=== PATIENT | female | born 2000 ===

== ENCOUNTER 2022-05-28 04:10 | Inpatient (IN) ==
[2022-05-28] MEDS ORDERED: Naloxone 0.4 MG/ML INJ IVP PRN (04:31)
[2022-05-28] MEDS ORDERED: Lidocaine 1% 20 ML MDV INFILT PRN (04:31)
[2022-05-28] MEDS ORDERED: Metoclopramide 10 MG/2 ML VIAL IVP PRN (04:31)
[2022-05-28] MEDS ORDERED: *HR* Nalbuphine 10 MG/ML AMPUL IV PRN (04:31)
[2022-05-28] MEDS ORDERED: Azithromycin 500 MG in 0.9 % Sodium Chloride 250 ML IVPB PRN (04:31)
[2022-05-28] MEDS ORDERED: Famotidine 20 MG/2 ML VIAL IVP PRN (04:31)
[2022-05-28] MEDS ORDERED: Ondansetron 4 MG/2 ML VIAL IVP PRN (04:31)
[2022-05-28] MEDS ORDERED: EPHEDrine 50 MG/ML VIAL IVP PRN (05:04)
[2022-05-28] MEDS ORDERED: Bupivacaine-MPF 0.25% 10 ML VIAL EP ONE (05:04)
[2022-05-28] MEDS ORDERED: *HR* FentaNYL (PF) 100 MCG/2 ML VIAL EP ONE (05:04)
[2022-05-28 05:17] LABS: Basophils % 0.1 %; Eosinophils % 0.5 %; Hemoglobin 12.4 g/dL (11.5-15.4); Immature Granulocytes % 0.3 % (0-4); Lymphocytes # 1.8 K/mcL (0.6-4.6); Lymphocytes % 23.7 %; Mean Corpuscular HGB Conc 33.5 g/dL (31.6-35.5); Mean Corpuscular Hemoglobin 28.7 pg (28.0-33.3); Mean Corpuscular Volume 85.6 fL (83.0-100.0); Mean Platelet Volume 11.1 fL (9.4-12.4); Monocytes # 0.4 K/mcL (0.0-1.3); Monocytes % 5.8 %; Neutrophils # 5.1 K/mcL (1.6-8.9); Platelet Count 233 K/mcL (140-400); Red Blood Count 4.32 M/mcL (3.82-4.97); Red Cell Distribution Width 12.8 % (11.5-14.5); Segmented Neutrophils % 69.6 %; White Blood Count 7.4 K/mcL (4.3-11.1)
[2022-05-28] MEDS: miSOPROStoL 25 MCG TABLET PO PRN ×2 (05:22→10:08)
[2022-05-28 05:24] LABS: Amphetamine Screen,Urine Negative ng/mL (Cutoff=1000); Barbiturate Screen,Urine Negative ng/mL (Cutoff=200); Benzodiazepines Screen,Urine Negative ng/mL (Cutoff=200); Cannabinoid Screen,Urine Negative ng/mL (Cutoff = 50); Cocaine Screen,Urine Negative ng/mL (Cutoff= 300); Opiate Screen,Urine Negative ng/mL (Cutoff=300); Phencyclidine Screen,Urine Negative ng/mL (Cutoff=25)
[2022-05-28] MEDS ORDERED: Oxytocin 30 UNIT/503 ML BAG IVC SCH (14:30)
[2022-05-28] MEDS: Ringers Solution, Lactated 1,000 ML IVC SCH (14:33)
[2022-05-28] MEDS ORDERED: Ropivacaine/PF 0.2% 20 ML VIAL ONE (16:25)
[2022-05-28] MEDS ORDERED: *HR* FentaNYL (PF) 100 MCG/2 ML VIAL ONE (16:25)
[2022-05-28] MEDS: Epidural Premix (fent/bupiv) 110 ML EP SCH (19:18)
[2022-05-29] MEDS: Epidural Premix (fent/bupiv) 110 ML EP SCH ×2 (00:30→07:11)
[2022-05-29] MEDS: Ringers Solution, Lactated 1,000 ML IVC SCH (00:34)
[2022-05-29] MEDS ORDERED: D5% in Lactated Ringers 1,000 ML IVC SCH (08:15)
[2022-05-29] MEDS ORDERED: Measles/Mumps/Rubella Vacc 0.5 ML VIAL SQ PRN (17:06)
[2022-05-29] MEDS ORDERED: Oxytocin 30 UNIT/503 ML BAG IVC SCH (17:06)
[2022-05-29] MEDS ORDERED: Ondansetron ODT 4 MG TAB.RAPDIS SL PRN (17:06)
[2022-05-29] MEDS: Acetaminophen 325 MG TABLET PO SCH ×2 (18:15→23:30)
[2022-05-29] MEDS: Lanolin 7 G OINT...G. TP PRN (18:15)
[2022-05-29] MEDS: Ibuprofen 600 MG TABLET PO SCH ×2 (18:15→23:30)
[2022-05-29] MEDS: Benzocaine/Menthol 56 GM AEROSOL SPRAY TP PRN (18:16)
[2022-05-30 03:38] VITALS: O2SAT 99
[2022-05-30 04:32] LABS: Basophils % 0.2 %; Eosinophils # 0.1 K/mcL (0.0-0.6); Eosinophils % 0.6 %; Hematocrit 28.2 % (35.3-44.9); Immature Granulocytes % 0.4 % (0-4); Lymphocytes # 1.9 K/mcL (0.6-4.6); Lymphocytes % 18.5 %; Mean Corpuscular HGB Conc 34.4 g/dL (31.6-35.5); Mean Corpuscular Hemoglobin 29.8 pg (28.0-33.3); Mean Corpuscular Volume 86.5 fL (83.0-100.0); Mean Platelet Volume 11.2 fL (9.4-12.4); Monocytes # 0.7 K/mcL (0.0-1.3); Monocytes % 6.7 %; Neutrophils # 7.7 K/mcL (1.6-8.9); Platelet Count 182 K/mcL (140-400); Red Blood Count 3.26 M/mcL (3.82-4.97); Red Cell Distribution Width 12.8 % (11.5-14.5); Segmented Neutrophils % 73.6 %; White Blood Count 10.5 K/mcL (4.3-11.1)
[2022-05-30 04:52] LABS: Hemoglobin 9.7 g/dL (11.5-15.4)
[2022-05-30] MEDS: Acetaminophen 325 MG TABLET PO SCH ×2 (07:36→13:33)
[2022-05-30] MEDS: Ibuprofen 600 MG TABLET PO SCH ×2 (07:36→13:32)
[2022-05-30 07:51] VITALS: BP 122/65; PULSE 82; TEMP 97.9
[2022-05-30] MEDS ORDERED: Prenatal Vit/FA 1 EACH TABLET PO SCH (09:00)
[2022-05-30] MEDS: Lanolin 7 G OINT...G. TP PRN (13:33)
[2022-05-30] MEDS: Benzocaine/Menthol 56 GM AEROSOL SPRAY TP PRN (13:33)
== END 2022-05-30 15:00 | disposition home or self-care (01) | DRG 560 ==
LOC: 1NENULAB 04:10 → 1NENUOBS 05-29 16:33
PROVIDERS: ADMIT Obstetrics & Gynecology; ATTEND Obstetrics & Gynecology